=== PATIENT | male | born 1990 | race Caucasian/White ===

== ENCOUNTER 2017-10-22 13:16 | Emergency (ER) | payer OTHER ==
[2017-10-22] MEDS ORDERED: TDAP ADULT 0.5 ML INJ (BOOSTRIX) IM ONE (13:29)
[2017-10-22] MEDS ORDERED: CEPHALEXIN 500 MG CAP PO ONE (13:29)
--- NOTE | 2017-10-22 13:41 | EDPHY ---
H & P Stated Complaint: lac to left hand from saw injury Time Seen by Provider: 10/22/17 13:25 HPI/ROS: CHIEF COMPLAINT: Left finger injuries from circular saw HISTORY OF PRESENT ILLNESS: 27-year-old [id number] male with out-of- date tetanus arrives via ambulance after he was at work using a circular saw being held in his right hand when it hit would and skipped impacting his left 2nd 3rd 4th digit as well as left medial thigh. He is complaining of associated pain to same locations. This was accidental injury. Denies other injury. PRIMARY CARE PROVIDER: Worker's compensation REVIEW OF SYSTEMS: A ten point review of systems was performed and is negative with the exception of the items mentioned in the HPI PAST MEDICAL & SURGICAL HISTORY: No pertinent medical or surgical history SOCIAL HISTORY: No alcohol or drug use PHYSICAL EXAM (Prior to examination, patient consented to physical exam, hands were washed and my usual and customary physical exam procedures followed) 1) GENERAL: Well-developed, well-nourished, alert and oriented. Appears uncomfortable 2) HEAD: Normocephalic, atraumatic 3) HEENT: Pupils equal, round, reactive to light bilaterally. Sclera anicteric. 4) NECK: Full range of motion, no meningeal signs. 5) LUNGS: Clear auscultation bilaterally, no wheezes, no rhonchi, no retractions. 6) HEART: Regular rate and rhythm, no murmur, no heave, no gallop. 7) ABDOMEN: No guarding, no rebound, no focal tenderness, n, 8) MUSCULOSKELETAL: Left upper extremity: On the patient's left 2nd digit distal phalanx he is a partial tissue avulsion with no osseous fragments visualized. FDP FDS function intact. The patient's left 3rd digit he has partial amputation of the distal phalanx, proximal 50% amputation on the palmar aspect. FDS dysfunction noted. On the patient's left 4th digit he has a laceration measuring 1.5 cm to the distal phalanx with FDP FDS function intact. Left lower extremity: Left medial thigh 4 discrete skip lacerations each measuring 2 cm for total length of 8 cm . These are superficial. Compartments are soft. No foreign bodies. No lymphangitic streaking or signs of infection. Otherwise, Moving all extremities, no focal areas of tenderness, no obvious trauma. No peripheral edema or discoloration. 9) BACK: No CVA tenderness, no midline vertebral tenderness, no fluctuance, no step-off, no obvious trauma, no visual or palpable abnormality. 10) SKIN: No rash, no petechiae. 11) Psychiatric: Patient is oriented X 3, there is no agitation. DIFFERENTIAL DIAGNOSIS: In no particular include but limited to amputation, tissue avulsion, laceration - Personal History Current Tetanus Diphtheria and Acellular Pertussis (TDAP): Unsure - Medical/Surgical History Hx Asthma: No Hx Chronic Respiratory Disease: No Hx Diabetes: No Hx Cardiac Disease: No Hx Renal Disease: No Hx Cirrhosis: No Hx Alcoholism: No Hx HIV/AIDS: No Hx Splenectomy or Spleen Trauma: No Other PMH: Denies - Social History Smoking Status: Never smoked Constitutional: Initial Vital Signs Temperature (C) 36.8 C 10/22/17 13:17 Heart Rate 83 10/22/17 13:17 Respiratory Rate 19 10/22/17 13:17 Blood Pressure 156/94 H 10/22/17 13:17 O2 Sat (%) 96 10/22/17 13:17 O2 Delivery Mode Room Air Allergies/Adverse Reactions: No Known Allergies Allergy (Unverified 10/22/17 13:21) Home Medications: Medication Instructions Recorded Cephalexin [Keflex] 500 mg PO QID 10 Days cap 10/22/17 Hydrocodone/APAP 5/325 [[place] 1 tab PO Q6 PRN #15 tab 10/22/17 5/325 (RX)] Medical Decision Making - Diagnostics Imaging Results: Imaging Impressions Hand X-Ray 10/22/17 13:38 Impression: 1. Amputation of the tuft of the 2nd finger. 2. Open comminuted displaced fracture of the distal phalanx of the 3rd finger. Images reviewed myself Procedures: Procedure: Laceration repair of multiple digits of left hand I explained the indications, risks and benefits for both laceration repair and anesthetic administration. Verbal consent was obtained from the patient. The 2nd 3rd 4th digits were anesthetized using 0.5% bupivicaine without epinephrine digital nerve block. After anesthetic administered the patient was observed for a period of time and had no apparent adverse effects. The wound was cleaned, prepped, draped in normal sterile fashion and explored to its base. No foreign body seen, no foreign bodies palpated. There were deep structures involved. The 2nd digit tissue avulsion was replaced and 6 simple interrupted 5 O Prolene sutures were placed to service of biologic bandage. The 3rd digit partial amputation tissue was reapproximated with 5 simple interrupted 5 O Prolene sutures to service of biologic bandage. The 4th digit laceration was closed with 2 simple interrupted 5 O Prolene sutures. The wound repair was complex. The procedure was performed by myself. Patient has been informed that scarring will occur, although efforts have been made to minimize this. Procedure: Splint Individual digits were wrapped and a volar Orthoglass splint was applied by ER diet technician registered. After application of the splint I returned and re-examined the patient. The splint was adequately immobilizing the joint and distal to the splint the patient's circulation and sensation were intact. Procedure: Laceration repair of left medial thigh I explained the indications, risks and benefits for both laceration repair and anesthetic administration. Verbal consent was obtained from the patient and parent. The laceration on the left medial thigh was anesthetized using 0.5% bupivicaine with epinephrine. After anesthetic administered the patient was observed for a period of time and had no apparent adverse effects. The wound was cleaned, prepped, draped in normal sterile fashion and explored to its base. No foreign body seen, no foreign bodies palpated. There were no deep structures involved. 2 simple interrupted 3 0 Prolene and to running sutures of 3 0 Prolene placed by myself The wound repair was complex. The procedure was performed by myself. Patient has been informed that scarring will occur, although efforts have been made to minimize this. ED Course/Re-evaluation: I had a lengthy discussion with the patient. He has been informed that the long -term prognosis for the fingertips is incompletely clear at this time. The importance of follow-up with Hand surgery has been stressed on numerous instances. I consulted with Dr. Ba Parikh at 3:23 p.m.. He agrees with plan of wound closure, follow up in office on (today is Sunday). In the meantime his tetanus has been updated, he is started on prophylactic antibiotics , his tissue has been reapproximated serve as biologic bandage. FDP and FDS function on the digits has been challenging to completely assess due to the patient's pain level even the presence of digital nerve block. This will need to be reassessed by hand surgery. I saw this patient independently based on established practice protocols. Care of patient under supervision of secondary supervising physician Dr Young . - Data Points Medications Given: Discontinued Medications Cephalexin HCl (Keflex) 500 mg PO EDNOW ONE PRN Reason: Protocol Stop: 10/22/17 13:30 Last Admin: 10/22/17 13:34 Dose: 500 mg Diphtheria/Tetanus/Acell Pertussis (Boostrix) 0.5 ml IM .ONCE ONE Stop: 10/22/17 13:30 Last Admin: 10/22/17 13:34 Dose: 0.5 ml Departure - Departure Disposition: Home, Routine, Self-Care Clinical Impression: Contact with powered saw as cause of accidental injury, Left index finger tissue avulsion, Left middle digit partial amputation, Left ring finger laceration Laceration of leg excluding thigh Qualifiers: Encounter type: initial encounter Laterality: left Qualified Code(s): S81.812A - Laceration without foreign body, left lower leg, initial encounter Condition: Good Instructions: Laceration (ED) Additional Instructions: Regarding your leg laceration return to the ER in 10 days for removal. Otherwise for your hand follow-up with the hand surgeon Dr. Ba Parikh. Referrals: Ba Parikh MD [Medical Doctor] - 10/25/17 Stand Alone Forms: Work Comp Follow Up, Work Excuse Prescriptions: Cephalexin [Keflex] 500 mg PO QID 10 Days cap Hydrocodone/APAP 5/325 [[place] 5/325 (RX)] 1 tab PO Q6 PRN #15 tab PRN Reason: Pain, Severe
[2017-10-22 16:00] VITALS: BP 136/76
== END 2017-10-22 16:00 | disposition home or self-care (01) ==
PROC: 0HQGXZZ Repair Left Hand Skin, External Approach (ICD-10-PCS; principal; 2017-10-22)
DX: S61.201A Unspecified open wound of left index finger without damage to nail, initial encounter (principal); S68.623A Partial traumatic transphalangeal amputation of left middle finger, initial encounter; S61.215A Laceration without foreign body of left ring finger without damage to nail, initial encounter; S81.812A Laceration without foreign body, left lower leg, initial encounter; Z23 Encounter for immunization; W31.2XXA Contact with powered woodworking and forming machines, initial encounter; Y92.69 Other specified industrial and construction area as the place of occurrence of the external cause; Y99.0 Civilian activity done for income or pay; Y93.89 Activity, other specified